=== PATIENT | male | born 1950 | race Caucasian/White ===

== ENCOUNTER 2023-01-14 09:59 | Outpatient (CLI) | payer MEDICARE, SELFPAY ==
--- NOTE | 2023-01-14 12:51 | WPDPFTINT ---
PFT Procedure Performed PFT Procedure Performed Plethysmography (Lung Vol) Diffusing Cap (DLCO) Flow Vol Loop Spirometry w/o Bronchodil PFT Interpretation This is a pulmonary function test with spirometry, plethysmography and diffusing capacity. The test was performed and results interpreted in accordance with the 2019 and 2005 ATS/ERS Task Force guidelines respectively using the Global Lung Function Initiative-2012 reference equations. Patient demonstrated good effort and cooperation. Reproducibility criteria were met. The quality of the spirometry maneuver was Grade A. Findings: Spirometry: The contour the inspiratory and expiratory flow tracing are normal. The FVC is 4.01 L, 102% predicted. The FEV1 is 3.07 L, 103% predicted. The FEV1: FVC ratio 77%. Plethysmography: The total lung capacity is 7.71 L, 116% predicted. The functional residual capacity is 4.46 L, 127% predicted. The residual volume is 3.61 L, 152% predicted. The residual volume:total lung capacity is increased at 47% predicted. Diffusing capacity: The diffusing capacity unadjusted for hemoglobin and carboxyhemoglobin is 24.0, 96% predicted. The diffusing capacity adjusted for alveolar volume is 4.25, 106% predicted. Impression: The spirometry is normal without evidence of an obstructive abnormality. The total lung capacity and functional residual capacity are normal with an increased residual volume and increased residual volume: Total lung capacity ratio consistent with hyperinflation. The diffusing capacity is normal. There are no prior studies for comparison
== END 2023-01-14 10:00 | disposition home or self-care (01) ==
LOC: ANHPFT 10:00
PROVIDERS: Visit Provider Internal Medicine Cardiovascular Disease
DX: R06.09 Other forms of dyspnea (principal)
CPT/HCPCS: 94375; 94726; 94729

== ENCOUNTER 2023-05-22 10:36 | Outpatient (CLI) | payer MEDICARE, SELFPAY ==
--- NOTE | ~2023-05-22 | CT_ITS ---
CT Scan of the Chest without Contrast: Clinical Indication: 5 mm lung nodule Technique: Contiguous sections were acquired throughout the chest without intravenous contrast. Dose reduction technique was used on this scan by utilizing automated exposure control and iterative recon struction technique. The dose-length product (DLP) was 144.64 mGy-cm. Findings: There is no evidence of any significant mediastinal, hilar or axillary lymphadenopathy. The mediastin al soft tissues appear normal. There is no evidence of pleural or pericardial effusion. 5 mm left lower lobe pulmonary nodule present (axial image 102). No other pulmonary nodule evident. Images through the upper abdomen reveal no abnormalities. Impression: 5 mm left lower lobe pulmonary nodule. According to Fleischner Society criteria, for a low-risk patie nt, no further follow-up required. For a high-risk patient, consider 12 month follow-up CT. Reviewed, dictated and finalized at [facility]. Impression: 5 mm left lower lobe pulmonary nodule. According to Fleischner Society criteria , for a low-risk patient, no further follow-up required. For a high-risk patien t, consider 12 month follow-up CT.
== END 2023-05-22 10:37 ==
LOC: GOSHIMG 10:38
PROVIDERS: PCP Nurse Practitioner Family; Visit Provider Nurse Practitioner Family
DX: R91.1 Solitary pulmonary nodule (principal)
CPT/HCPCS: 71250

== ENCOUNTER 2024-04-08 01:48 | Day surgery (SDC) | payer OTHER, SELFPAY ==
[2024-03-26 14:46] VITALS: BMI 27.1
--- OUTSIDE RECORDS SUMMARY | 2024-04-08 01:51 | XMS_ITS | CONTINUITY OF CARE DOCUMENT ---
Author Name carter machado Address Unknown Organization [facility] Address [address] [place] [address] [address] [place] [address] Phone [phone] Care Team Providers Care Registration Manager Name Role Phone carter machado Unavailable Unavailable INSURANCE PROVIDERS Payer name Policy type / Coverage type Anamika red democrat ID [id number] insurance [employer] [id number]
--- OUTSIDE RECORDS SUMMARY | 2024-04-08 01:51 | XMS_ITS | Clinical Summary ---
Author Organization [facility] Address [address] [facility] [place] [address] Care Team Providers Care Usability Architect Name Role Phone Ronaldo David MD Unavailable [phone] Ej Grant MD Primary Care Provider [phone] Source Comments [facility] and Associated Physician Practices is amultiple site organization consisting of ambulatory clinics and hospital sitesin [place], [place], [place] and [place]. This disclosure is being madepursuant to the Care Everywhere program and may not contain all information available regarding this patient. Last updated 17.[facility] Allergies Active Allergy Reactions Criticality Noted Date Comments Morphine Nausea and/or Vomiting 03/30/2012 Tramadol Nausea and/or Vomiting 08/02/2009 Medications * Be aware that medications may not be up to date on this document. Alwaysverify current medications with the patient. Medication Sig Dispensed Refills Start Date End Date Status lisinopril (PRINIVIL; ZESTRIL) 10 MG tablet Take 10 mg by mouth daily. Active hydrocodone-acetamino phen (NORCO) 5-325 MG tablet Take 1-2 Tabs by mouth every 6 hours as needed. Called to [facility] [phone] 50 Tab 1 07/30/2013 Active celecoxib (CELEBREX) 200 MG capsule Take 1 Cap by mouth once daily. Sent to 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 Right leg pain 08/02/2009 Low back pain 08/02/2009 Overview (01/15/2015): Family History Relation Name Status Comments Father Mother Alive Sister 1 Alive Sister 2 Alive Sister 3 Alive Sister 4 Alive Social History Tobacco Use Types Packs/Day Years Used Date Smoking Tobacco: Former Cigarettes 0.5 10 0 07/19/1974 - 07/19/1984 Smokeless Tobacco: Never Alcohol Use Standard Drinks/Week Comments Yes 0.8 (1 standard drin k = 0.6 oz pure alcohol) Beer - 5 per week for 10 years Sex and Gender Information Value Date Recorded Sex Assigned at Not on file Gender Identity Not on file Sexual Orientation Not on file Last Filed Vital Signs Vital Sign Reading Time Taken Comments Blood Pressure 122/82 07/30/2013 8:54 AM CDT Pulse 96 07/30/2013 8:54 AM CDT Temperature 36.7 ??C (98 ??F) 07/30/2013 6:34 AM CDT Respiratory Rate 14 07/30/2013 8:54 AM CDT Oxygen Saturation 96% 07/30/2013 8:54 AM CDT Inhaled Oxygen Concentration - - Weight 87.3 kg (192 lb 6.4 oz) 07/28/2013 11:08 AM CDT Height 172.7 cm (5' 8 ) 07/28/2013 11:08 AM CDT Body Mass Index 29.25 07/28/2013 11:08 AM CDT Plan of Treatment Health Maintenance Due Date Last Done Comments COLOGUARD (AGES 45-75) - COL ON CA SCREENING 1950 COLON MONITORING 1950 COLONOSCOPY - COLON CA SCREENING 1951 CT COLONOGRAPHY - COLON CA SCREENING 1950 Colorectal Cancer Screening 1950 FIT - COLON CA SCREENING 1950 FLEX SIG - COLON CA SCREENING 1950 LIPID TESTING 1950 HEPATITIS C SCREENING 10/18/1969 DTAP/TDAP/TD VACCINES (1 - Tdap) 10/22/1970 PNEUMOCOCCAL VACCINE 50+ (1 of 1 - PCV) 10/22/2001 ZOSTER VACCINE (1 of 2) 10/22/2001 AAA SCREENING 10/22/2016 COVID-19 VACCINE ( - 2023-2 5 season) 2023 INFLUENZA VACCINE (#1) 2023 DEPRESSION SCREENING 03/10/2024 Respiratory Syncytial Virus (RSV) Vaccine Pt: or over 60 yrs (1 - 1-dose 75+ series) 10/22/2026 HEPATITIS B VACCINE Aged Out No longe r eligible based on patient's age to complete this topic HIB VACCINE Aged Out No longer eligi ble based on patient's age to complete this topic HPV VACCINE Aged Out No longer eligi ble based on patient's age to complete this topic MENINGOCOCCAL (Group B) VACCINE Aged Out No longer eligible based on patient's age to complete this topic MENINGOCOCCAL VACCINE Aged Out No tess charo eligible based on patient's age to complete this topic Medical Devices Implanted Type Area Modeling Teacher Device Identifier Shelf Expiration Date Model / Serial / Lot Tereso Bone [place] Hv Implanted:Qty: 1 on 07/28/2013 by Ronaldo David MD at [facility] [employer] 03/09/2015 [id number] / / [id number] Tereso Bone [place] Hv Implanted:Qty: 1 on 07/28/2013 by Ronaldo David MD at [facility] Left: [employer]nee [employer] 03/09/2015 [id number] / / [id number] Butn Pat Arcom Wire Polyeth Med 34 X 9mm Implanted:Qty: 1 on 07/28/2013 by Ronaldo David MD at [facility] Left: [employer]nee [employer] 06/06/2018 [id number] / / [id number] Ty Tibial I Beam Fix Bar 75mm Implanted:Qty: 1 on 07/28/2013 by Ronaldo David MD at [facility] Left: [employer]nee [employer] 06/07/2023 [id number] / / [id number] Femur Ps L 70mm Implanted:Qty: 1 on 07/28/2013 by Ronadlo David MD at [facility] Left: [employer]nee [employer] 03/09/2023 [id number] / / [id number] E1 Vanguard Tibial Bearing Implanted:Qty: 1 on 07/28/2013 by Ronaldo David MD at [facility] Left: Knee 05/07/2018 [id number] / / [id number] Advance Directives * Full Code (Latest Code Status on File) Date Activated Date Inactivated Comments 07/28/2013 5:54 PM 07/30/2013 1:05 PM Care Teams Usability Architect Relationship Specialty Start Date End Date Ej Grant MD [address] [facility] [address] [place] [phone] PCP - General Internal Medicine 07/01/13 Ronaldo David MD Orthopedic Surgery 07/01/13
--- OUTSIDE RECORDS SUMMARY | 2024-04-08 01:51 | XMS_ITS | Encounter Summary ---
Author Organization [facility] Address [address] [facility] [place] [address] Care Team Providers Care Auditor Internal Name Role Phone Ronaldo David MD Unavailable [phone] Ej Grant MD Primary Care Provider [phone] Encounter Details Date Type Department Care Team (Late st Contact Info) Description 06/11/2023 Lab Requisition [facility] - DermPath Lab [address] [facility], [place] [address] Mariah Omer MD [address] [facility] 3 DE[place] [address] Social History Tobacco Use Types Packs/Day Years [...] on file Sexual Orientation Not on file documented as of this encounter Functional Status Functional Status Response Date of Assess ment Is person deaf or have serious hearing difficult y? No 07/30/2013 Is person blind or have serious difficulty seein g? No 07/30/2013 Does person have serious dif ficulty walking/climbing stairs? No 07/30/2013 Does person have difficulty dressing/bathing? No 07/30/2013 Does person have difficulty doing errands alone? No 07/30/2013 Cognitive Status Response Date of Assessm ent Does person have difficulty concentrating/remembering/making decisions? No 07/30/2013 documented as of this encounter Plan of Treatment Not on file documented as of this encounter Procedures Procedure Name Priority Date/Time Associated Diagnosis Comments DERMATOPATHOLOGY Routine 06/11/2023 9:36 AM CDT documented in this encounter Results * DERMATOPATHOLOGY (06/11/2023 9:36 AM CDT) Case Report Dermatopathology Report ? Case: [id number] ? Authorizing Provider: ??Mariah Omer MD ?Collected: ? 06/11/2023 09:36 AM ? Ordering Location: ? [facility] - ??Received: ?06/12/2023 06:46 AM ? DermPath Lab ? Pathologist: ? Shruthi Ramos MD ? Specimens: ?? A) - Skin, forehead ? B) - Skin, left back ? 3:31 PM [facility] DERMATOPATHOLOGY LABORATORY Final Diagnosis Specimen A. 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 SKIN, left back: BASAL CELL CARCINOMA, NODULAR TYPE (C44.519) 3:31 PM [facility] DERMATOPATHOLOGY LABORATORY Clinical History A: SCC vs. ISK B: Pigmented BCC vs. MM 3:31 PM [facility] DERMATOPATHOLOGY LABORATORY Gross Description Specimen A: Received is one formalin filled container labeled with the patient's name and designated forehead. The specimen consists of a shave biopsy measuring 5x5x2 mm. Jar 0. Specimen B: Received is one formalin filled container labeled with the patient's name and designated left back. The specimen consists of a shave biopsy measuring 15v63u6 mm. Jar 0. 3:31 PM [facility] DERMATOPATHOLOGY LABORATORY Microscopic Description Specimen A. SKIN, forehead: Sections show areas in which atypical keratinocytes are present within the epidermis in two different patterns. In one area, atypical keratinocytes replace most of the thickness of the epidermis and there are broad rete ridges and overlying parakeratosis. In other areas, there are atypical keratinocytes in the lower epidermis with partial maturation. There is solar elastosis. Specimen B. SKIN, left back: Sections show nodular aggregations of peripherally palisaded basaloid cells in the dermis. Melanin is present in neoplastic cells, and in macrophages in the adjacent fibromyxoid stroma. 3:31 PM [facility] DERMATOPATHOLOGY LABORATORY Disclaimer An external and internal positive and negative controls are appropriate for the histochemical, immunohistochemical and immunofluorescence stain(s) in this case (if any), except where stated explicitly. The performance characteristics of the stain(s) cited in this report were developed and its performance characteristic determined by the Dermatopathology Laboratory at [facility], directed by Dr. Rusty Cornejo. These tests need not be, and therefore are not, approved by the [place] Food and Drug Administration. The tests are used for clinical purposes. Billing Codes Specimen Charges Stain Charges 71460 82691 1 1 4 3:31 PM CDT DERMATOPATHOLOGY LABORATORY Embedded Images 4 3:31 PM CDT DERMATOPATHOLOGY LABORATORY Pathology/Cytology TISSUE SPECIMEN FROM SKIN / Unknown 06/11/2023 9:36 AM CDT 06/12/2023 6:46 AM CDT Miscellaneous samples (specimen) TISSUE SPECIMEN FROM SKIN / Unknown 06/11/2023 9:36 AM CDT 06/12/2023 6:46 AM CDT Mariah Omer MD LAB - PATHOLOGY/CYTO LOGY ORDERABLES Performing Organization Address City/State/[facility] Co de Phone Number DERMATOPATHOLOGY LABORATORY [facility] - Department of Dermatology [facility] Medicine [address] [place] [address], [address] [phone] documented in this encounter Visit Diagnoses Not on filedocumented in this encounter Care Teams Auditor Internal Relationship Specialty Start Date End Date Ej Grant MD [address] [place] [address] [address] [place] [phone] PCP - General Internal Medicine 07/01/13 Ronaldo David MD Orthopedic Surgery 07/01/13 documented as of this encounter
--- OUTSIDE RECORDS SUMMARY | 2024-04-08 01:51 | XMS_ITS | Referral Summary ---
Author Organization [facility] Address [address] [facility] [place] [address] Care Team Providers Care Manager Policy Name Role Phone Ronaldo David MD Unavailable [phone] Ej Grant MD Primary Care Provider [phone] Source Comments [facility] and Associated Physician Practices is amultiple site organization consisting of ambulatory clinics and hospital sitesin [place], [place], [place] and [place]. This disclosure is being madepursuant to the Care Everywhere program and may not contain all information available regarding this patient. Last updated 17.[facility] Allergies Active Allergy Reactions Criticality Noted Date [...] every 6 hours as needed. Called to [facility] [phone] 50 Tab 1 07/30/2013 Active celecoxib (CELEBREX) 200 MG capsule Take 1 Cap by mouth once daily. Sent to 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 No 07/30/2013 Plan of Treatment Not on file Medical Devices Implanted Type Area Clerk Of Court Device Identifier Shelf Expiration Date Model / Serial / Lot Tereso Bone [place] Hv Implanted:Qty: 1 on 07/28/2013 by Ronaldo David MD at [facility] [employer] 03/09/2015 [id number] / / [id number] Tereso Bone [place] Hv Implanted:Qty: 1 on 07/28/2013 by Ronaldo David MD at [facility] Left: [employer] 03/09/2015 [id number] / / [id number] Gladys Oneill Ar[employer] Polyeth Med 34 X 9mm Implanted:Qty: 1 on 07/28/2013 by Ronaldo David MD at [facility] Left: [employer] 06/06/2018 [id number] / / [id number] Tibial I Beam Fix Bar 75mm Implanted:Qty: 1 on 07/28/2013 by Ronaldo David MD at [facility] Left: [employer] 06/07/2023 [id number] / / [id number] Femur Ps L 70mm Implanted:Qty: 1 on 07/28/2013 by Ronaldo David MD at [facility] Left: [employer] 03/09/2023 [id number] / / [id number] E1 Vanguard Tibial Bearing Implanted:Qty: 1 on 07/28/2013 by Ronaldo David MD at [facility] Left: Knee 05/07/2018 [id number] / / [id number] Advance Directives * Full Code (Latest Code Status on File) Date Activated Date Inactivated Comments 07/28/2013 5:54 PM 07/30/2013 1:05 PM Care Teams Manager Policy Relationship Specialty Start Date End Date Ej Grant MD [address] [facility] [address] [place] [address] PCP - General Internal Medicine 07/01/13 Ronaldo David MD Orthopedic Surgery 07/01/13
--- OUTSIDE RECORDS SUMMARY | 2024-04-08 01:51 | XMS_ITS | Encounter Summary ---
Author Organization [facility] Address [address] [facility] [place] [address] Care Team Providers Care Lockstitch Hemmer Name Role Phone Ronaldo David MD Unavailable [phone] Ej Grant MD Primary Care Provider [phone] Encounter Details Date Type Department Care Team (Late st Contact Info) Description 09/01/2023 Lab Requisition [facility] - [facility]erm[facility] Lab [address] [facility], [place] [address] Mariah Omer MD [address] [facility] [address] [place] [address] Social History Tobacco Use Types Packs/Day Years [...] Priority Date/Time Associated Diagnosis Comments DERMATOPATHOLOGY Routine 09/01/2023 10:5 0 AM CDT documented in this encounter Results * DERMATOPATHOLOGY (09/01/2023 10:50 AM CDT) Case Report Dermatopathology Report ? Case: [id number] ? Authorizing Provider: ??Mariah Omer MD ?Collected: ? 09/01/2023 10:50 AM ? Ordering Location: ? [facility] - ??Received: ?09/01/2023 04:19 PM ? DermPath Lab ? Pathologist: ? Yesica Do, ? MD ? Specimen: ?Skin, left back ? 4 1:29 PM T DERMATOPATHOLOGY LABORATORY Final Diagnosis Specimen A. SKIN, left back: DERMAL SCAR RESIDUAL BASAL CELL CARCINOMA NOT IDENTIFIED (L90.5) 4 1:29 PM T DERMATOPATHOLOGY LABORATORY Clinical History BCC bx proven 4 1:29 PM [facility] DERMATOPATHOLOGY LABORATORY Gross Description Specimen A: Received is one formalin filled container labeled with the patient's name and designated left back. The specimen consists of a non-oriented ellipse of skin measuring 72e46q50 mm. The epidermal surface is unremarkable. The margin is inked green. The 12 o'clock and 6 o'clock tips are submitted in cassette 1. The remainder of the ellipse is serially sectioned and submitted in cassette 2-8. Jar 0. 4 1:29 PM [facility] DERMATOPATHOLOGY LABORATORY Microscopic Description Specimen A. SKIN, left back: There are fibroblasts and collagen bundles oriented parallel to the skin surface. There are elongated blood vessels, some of which are oriented perpendicular to the skin surface. No basal cell carcinoma is identified. 4 1:29 PM T DERMATOPATHOLOGY LABORATORY Disclaimer An external and internal positive and negative controls are appropriate for the histochemical, immunohistochemical and immunofluorescence stain(s) in this case (if any), except where stated explicitly. The performance characteristics of the stain(s) cited in this report were developed and its performance characteristic determined by the Dermatopathology Laboratory at [facility], directed by Dr. Rusty Cornejo. These tests need not be, and therefore are not, approved by the [place] Food and Drug Administration. The tests are used for clinical purposes. Billing Codes Specimen Charges Stain Charges 12645 1 4 1:29 PM T DERMATOPATHOLOGY LABORATORY Embedded Images 06/26/202 4 1:29 PM CDT DERMATOPATHOLOGY LABORATORY Pathology/Cytolo gy TISSUE SPECIMEN FROM SKIN / Unknown 09/01/2023 10:50 AM CDT 09/01/2023 4:19 PM CDT Mariah Omer MD LAB - PATHOLOGY/CYTO LOGY ORDERABLES DERMATOPATHOLOGY LABORATORY [facility] - Department of Dermatology [facility] Medicine [address] [place] [address], [address] [phone] documented in this encounter Visit Diagnoses Not on filedocumented in this encounter Care Teams Lockstitch Hemmer Relationship Specialty Start Date End Date Ej Grant MD [address] [place] [phone] PCP - General Internal Medicine 07/01/13 Ronaldo David MD Orthopedic Surgery 07/01/13 documented as of this encounter
--- OUTSIDE RECORDS SUMMARY | 2024-04-08 01:51 | XMS_ITS | Patient Health Summary ---
Author Organization [facility] Address [address] [place] [address] Care Team Providers Care Carpet Cleaning Technician Name Role Phone Ronaldo David MD Unavailable [phone] Ej Grant MD Primary Care Provider [phone] Note from [facility],non-owned Affiliates and Associated Physician Practices is amultiple site organization consisting of ambulatory clinics and hospital sitesin [place], [place], [place] and [place]. This disclosure is being madepursuant to the Care Everywhere program and may not contain all information available regarding this patient. Last updated 17.[facility] Allergies * Morphine(Nausea and/or Vomiting) * Tramadol(Nausea and/or Vomiting) Medications * Be aware that medications may not be up to date on this document. Alwaysverify current medications with the patient. * lisinopril (PRINIVIL; ZESTRIL) 10 MG tablet Take 10 mg by mouth daily. * hydrocodone-acetaminophen (NORCO) 5-325 MG tablet(Started 07/30/2013) Take 1-2 Tabs by mouth every 6 hours as needed. Called to [facility] [phone] 1 refill left * celecoxib (CELEBREX) 200 MG capsule(Started 07/30/2013) Take 1 Cap by mouth once daily. 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 Right leg pain 08/02/2009 Low back pain 08/02/2009 Social History Tobacco Use Types Packs/Day Years [...] Mass Index 29.25 07/28/2013 11:08 AM CDT Medical Devices Implanted Type Area Marine Technician Device Identifier Shelf Expiration Date Model / Serial / Lot Tereso Bone [place] Implanted:Qty: 1 on 07/28/2013 by Ronaldo David MD at [facility] [employer] 03/09/2015 [id number] / / [id number] Tereso Bone [place] Hv Implanted:Qty: 1 on 07/28/2013 by Ronaldo David MD at [facility] Left: [employer]nee [employer] 03/09/2015 [id number] / / [id number] Gladys Plataom Wire Polyeth Med 34 X 9mm Implanted:Qty: 1 on 07/28/2013 by Ronaldo David MD at [facility] Left: [employer]nee [employer] 06/06/2018 [id number] / / [id number] Tibial I Beam Fix Bar 75mm Implanted:Qty: 1 on 07/28/2013 by Ronaldo David MD at [facility] Left: [employer]nee [employer] 06/07/2023 [id number] / / [id number] Femur Ps L 70mm Implanted:Qty: 1 on 07/28/2013 by Ronaldo David MD at [facility] Left: [employer]nee [employer] 03/09/2023 [id number] / / [id number] Vanguard Tibial Bearing Implanted:Qty: 1 on 07/28/2013 by Ronaldo David MD at [facility] Left: Knee 05/07/2018 [id number] / / [id number] Procedures * DERMATOPATHOLOGY(Performed 09/01/2023) * DERMATOPATHOLOGY(Performed 06/11/2023) * XR KNEE LEFT 2VW OR LESS(Performed 08/11/2013) Performed for Total knee replacement status * HGB HCT PANEL(Performed 07/30/2013) * HGB HCT PANEL(Performed 07/29/2013) * ARTHROPLASTY TOTAL KNEE(Performed 07/28/2013) Performed for Osteoarthrosis, unspecified whether generalized or localized, lower leg, Pain in joint, lower leg * NEURAXIAL BLOCK(Performed 07/28/2013) * CULTURE MSSA/MRSA(Performed 07/19/2013) Performed for Pre-op testing * COMPREHENSIVE METABOLIC PANEL(Performed 07/19/2013) Performed for Pre-op testing * CBC W AUTO DIFFERENTIAL(Performed 07/19/2013) Performed for Pre-op testing * EKG 12-LEAD(Performed 07/19/2013) Performed for Pre-op testing * XR KNEE BILAT 2VW OR LESS(Performed 07/01/2013) Performed for Bilateral knee pain * IMAGING/RADIOLOGY/XRAY RESULTS ORDER(Performed 08/28/2012) * PAIN MANAGEMENT PROCEDURE TIME(Performed 04/06/2012) Performed for Thoracic or lumbosacral neuritis or radiculitis, unspecified, Postlaminectomy syndrome, lumbar region, Lumbosacral spondylosis without myelopathy * PAIN MANAGEMENT PROCEDURE TIME(Performed 03/30/2012) Performed for Thoracic or lumbosacral neuritis or radiculitis, unspecified, Postlaminectomy syndrome, lumbar region, Lumbosacral spondylosis without myelopathy * IMAGING/RADIOLOGY/XRAY RESULTS ORDER(Performed 07/20/2009) Results * DERMATOPATHOLOGY (09/01/2023 10:50 AM CDT) Only the most recent of2 resultswithin the time period is included. Case Report Dermatopathology Report ? Case: [id number] ? Authorizing Provider: ??Mariah Omer, MD ?Collected: ? 09/01/2023 10:50 AM ? Ordering Location: ? [facility] - ??Received: ?09/01/2023 04:19 PM ? DermPath Lab ? Pathologist: ? Hi, Yesica Cook, ? MD ? Specimen: ?Skin, left back ? 4 1:29 PM CDT DERMATOPATHOLOGY LABORATORY Final Diagnosis Specimen A. SKIN, left back: DERMAL SCAR RESIDUAL BASAL CELL CARCINOMA NOT IDENTIFIED (L90.5) 4 1:29 PM CDT DERMATOPATHOLOGY LABORATORY Clinical History BCC bx proven 4 1:29 PM CDT DERMATOPATHOLOGY LABORATORY Gross Description Specimen A: Received is one formalin filled container labeled with the patient's name and designated left back. The specimen consists of a non-oriented ellipse of skin measuring [id number] mm. The epidermal surface is unremarkable. The margin is inked green. The 12 o'clock and 6 o'clock tips are submitted in cassette 1. The remainder of the ellipse is serially sectioned and submitted in cassette 2-8. Jar 0. 4 1:29 PM CDT DERMATOPATHOLOGY LABORATORY Microscopic Description Specimen A. SKIN, left back: There are fibroblasts and collagen bundles oriented parallel to the skin surface. There are elongated blood vessels, some of which are oriented perpendicular to the skin surface. No basal cell carcinoma is identified. 4 1:29 PM CDT DERMATOPATHOLOGY LABORATORY Disclaimer An external and internal positive and negative controls are appropriate for the histochemical, immunohistochemical and immunofluorescence stain(s) in this case (if any), except where stated explicitly. The performance characteristics of the stain(s) cited in this report were developed and its performance characteristic determined by the Dermatopathology Laboratory at [facility], directed by Dr. Rusty Cornejo. These tests need not be, and therefore are not, approved by the [place] Food and Drug Administration. The tests are used for clinical purposes. Billing Codes Specimen Charges Stain Charges 09450 1 4 1:29 PM CDT DERMATOPATHOLOGY LABORATORY Embedded Images 4 1:29 PM CDT DERMATOPATHOLOGY LABORATORY Pathology/Cytolo gy TISSUE SPECIMEN FROM SKIN / Unknown 09/01/2023 10:50 AM CDT 09/01/2023 4:19 PM CDT Mariah Omer MD LAB - PATHOLOGY/CYTO LOGY ORDERABLES Performing Organization Address City/State/[facility] Co de Phone Number DERMATOPATHOLOGY LABORATORY [facility] Department of Dermatology [address], [address] [phone] * XR KNEE 1 OR 2 VW LEFT (08/11/2013 9:39 AM CDT) Anatomical Region Laterality Modality Lower Extremity Radiographic Mariangel ging Narrative 08/11/2013 9:42 AM CDT Radha Sorenson RT(R) ? 08/11/2013 ??9:42 AM See progress notes for results Procedure Note Radha Sorenson, RT(R) - 08/11/2013 9:41 AM CDT See progress notes for results Ronaldo David MD DIAGNOSTIC IMAGING ORDERABLES * HGB HCT PANEL (07/30/2013 3:26 AM CDT) Only the most recent of2 resultswithin the time period is included. Hemoglobin 12.0 12.0 - 17.6 gm/dL 07/30/2013 3:52 AM CDT [facility] Hematocrit 35.6 35.2 - 51.7 % 07/30/2013 3:52 AM CDT [facility] Blood BLOOD SPECIMEN / Unknown 07/30/2013 3:26 AM CDT 07/30/2013 3:48 AM CDT Ronaldo David MD LAB - HEMATOLOGY OR DERABLES [facility] [address] [place] [address] * NEURAXIAL BLOCK (07/28/2013 2:16 PM CDT) Narrative Christine Agrawal, ELTON-MITTEN SEWER - 07/28/2013 2:16 PM CDT SHEEBA [place] ? 07/28/2013 ??2:16 PM NEURAXIAL BLOCK Patient Location: ??OR Pre Procedure Anticoagulation /Antithrombosis Status Confirmed: Yes Preanesthetic Checklist: ??patient identified, IV checked, site marked, risks and benefits discussed, surgical consent verified, monitors and equipment checked, pre-op evaluation done, timeout performed, informed consent obtained and questions answered / anesthesia plan accepted Monitors: ??BP and Pulse Ox Patient Condition: ??sedated, meaningful contact maintained Patient Position: ??sitting Procedure Block Performed: ??spinal Prep: ??Betadine Sterile Field: ??sterile gloves, sterile field established, cap/hat and mask Approach: ??midline Skin Numbed with: ??lidocaine 1% Spinal Needle Gauge: ??22 G Placement Site: ??L3-4 Number of Attempts: ??2 CSF: ??free flow, aspiration before injection, aspiration during injection and aspiration after injection Local Anesthetic: ??bupivacaine 0.75% in dextrose 2 Spinal Additive: ?fentanyl 25 mcg ? Events CSF return injection not painful no paresthesia no other event Position Post Procedure: ??supine Vital signs monitored and stable throughout. ??See Anesthesia Intraop record for details. Block Start Time: ??07/28/2013 1:22 PM Block End Time: ??07/28/2013 1:25 PM Block Performed by: ??sam jin Procedure Note Christine Agrawal, HEALTH INFORMATION ADMINISTRATOR-SAM - 07/28/2013 2:14 PM CDT NEURAXIAL BLOCK Patient Location: OR Pre Procedure Anticoagulation /Antithrombosis Status Confirmed: Yes Preanesthetic Checklist: patient identified, IV checked, site marked,risks and benefits discussed, surgical consent verified, monitors andequipment checked, pre-op evaluation done, timeout performed, informedconsent obtained and questions answered / anesthesia plan accepted Monitors: BP and Pulse Ox Patient Condition: sedated, meaningful contact maintained Patient Position: sitting Procedure Block Performed: spinal Prep: Betadine Sterile Field: sterile gloves, sterile field established, cap/hat andmask Approach: midline Skin Numbed with: lidocaine 1% Spinal Needle Gauge: 22 G Placement Site: L3-4 Number of Attempts: 2 CSF: free flow, aspiration before injection, aspiration during injectionand aspiration after injection Local Anesthetic: bupivacaine 0.75% in dextrose 2 Spinal Additive: fentanyl 25 mcg Events CSF return injection not painful no paresthesia no other event Position Post Procedure: supine Vital signs monitored and stable throughout. See Anesthesia Intraoprecord for details. Block Start Time: 07/28/2013 1:22 PM Block End Time: 07/28/2013 1:25 PM Block Performed by: davin, bearingizer Christine Agrawal APRN-MITTEN SEWER GENERAL EMILIA ARELLANO ORDERABLES * (ABNORMAL) CULTURE MSSA/MRSA (07/19/2013 8:42 AM CDT) Pathologist [facility] [place] Culture Negative for MRSA 014 2:53 PM CDT [facility]CRO[facility]OLOG[facility] Culture Staphylococcus aureus (MSSA)(A) 07/20/2013 2:53 PM CDT [facility] MICRO[facility]OLOG[facility] Microbiology SPECIMEN FROM NASAL FOSSAE / Unknown 07/19/2013 8:42 AM CDT 07/19/2013 9:35 AM CDT Miko Linda MD LAB - MICROBIOLOGY O RDERABLES [facility] MICROBIOLOGY [address] [place] [address], [facility] * (ABNORMAL) CBC W AUTO DIFFERENTIAL (07/19/2013 8:42 AM CDT) Pathologist [facility] [place] WBC 7.4 4.4 - 10.7 x10^9/L 07/19/2013 9:42 AM CDT [facility] RBC 4.58 3.80 - 5.40 x10^12/L 07/19/2013 9:42 AM CDT [facility] Hemoglobin 15.1 12.0 - 17.6 gm/dL 07/19/2013 9:42 AM CDT [facility] Hematocrit 43.7 35.2 - 51.7 % 07/19/2013 9:42 AM CDT [facility] MCV 95.4 80.7 - 98.3 fl 07/19/2013 9:42 AM CDT [facility] MCH 33.0 26.7 - 34.0 pg 07/19/2013 9:42 AM CDT [facility] MCHC 34.6 30.8 - 35.9 gm/dL 07/19/2013 9:42 AM CDT [facility] Platelet Count 241 153 - 416 x10^9/L 07/19/2013 9:42 AM CDT [facility] RDW-CV 13.9 12.1 - 14.9 % 07/19/2013 9:42 AM CDT [facility] MPV 9.8 9.4 - 12.9 fl 07/19/2013 9:42 AM CDT [facility] Neutrophils % 75.2(H) 44.0 - 73.0 % 07/19/2013 9:42 AM CDT [facility] Lymphocytes % 16.4(L) 20.0 - 43.0 % 07/19/2013 9:42 AM CDT [facility] Monocytes % 7.7 5.0 - 13.0 % 07/19/2013 9:42 AM CDT [facility] Eosinophils % 0.3 0.0 - 6.0 % 07/19/2013 9:42 AM CDT [facility] Basophils % 0.3 0.0 - 2.0 % 07/19/2013 9:42 AM CDT [facility] Immature Granulocytes 0.1 0 - 1 % 07/19/2013 9:42 AM CDT [facility] Neutrophil Absolute 5.57 2.01 - 7.14 x10^9/L 07/19/2013 9:42 AM CDT [facility] Lymphocytes Absolute 1.21 1.07 - 3.94 x10^9/L 07/19/2013 9:42 AM CDT [facility] Monocytes Absolute 0.57 0.26 - 1.07 x10^9/L 07/19/2013 9:42 AM CDT [facility] Eosinophils Absolute 0.02 0 - 0.47 x10^9/L 07/19/2013 9:42 AM CDT [facility] Basophils Absolute 0.02 0 - 0.08 x10^9/L 07/19/2013 9:42 AM CDT [facility] Immature Granulocytes Absolute 0.01 0.00 - 0.06 x10^9/L 07/19/2013 9:42 AM CDT [facility] Blood BLOOD SPECIMEN / Unknown 07/19/2013 8:42 AM CDT 07/19/2013 9:35 AM CDT Miko Linda MD LAB - HEMATOLOGY ORD ERABLES [facility] [address] [place] [address] * (ABNORMAL) COMPREHENSIVE METABOLIC PANEL (07/19/2013 8:42 AM CDT) Glucose 142(H) 74 - 106 mg/dL 07/19/2013 9:57 AM CDT [facility] Sodium 135(L) 136 - 145 mmol/L 07/19/2013 9:57 AM CDT [facility] Potassium 4.4 3.5 - 5.1 mmol/L 07/19/2013 9:57 AM CDT [facility] Chloride 102 98 - 107 mmol/L 07/19/2013 9:57 AM CDT [facility] CO2 27 22 - 31 mmol/L 07/19/2013 9:57 AM CDT [facility] Calcium 9.2 8.5 - 10.1 mg/dL 07/19/2013 9:57 AM CDT [facility] Anion Gap 6 5 - 15 mmol/L 07/19/2013 9:57 AM CDT [facility] BUN 20 7 - 21 mg/dL 07/19/2013 9:57 AM CDT [facility] Creatinine 0.83 0.50 - 1.30 mg/dL 07/19/2013 9:57 AM CDT [facility] eGFR by MDRD >60 >60 mL/min/1.7 3m2 07/19/2013 9:57 AM CDT [facility] eGFR by MDRD >60 >60 mL/min/1.7 3m2 07/19/2013 9:57 AM CDT [facility] Alkaline Phosphatase 41 38 - 126 U/L 07/19/2013 9:57 AM CDT [facility] ALT 28 12 - 78 U/L 07/19/2013 9:57 AM CDT [facility] AST 23 5 - 40 U/L 07/19/2013 9:57 AM CDT [facility] Protein Total 7.4 6.4 - 8.2 gm/dL 07/19/2013 9:57 AM CDT [facility] Albumin 4.1 3.4 - 5.0 gm/dL 07/19/2013 9:57 AM CDT [facility] Bilirubin Total 0.4 0.2 - 1.0 mg/dL 07/19/2013 9:57 AM CDT [facility] Blood BLOOD SPECIMEN / Unknown 07/19/2013 8:42 AM CDT 07/19/2013 9:35 AM CDT Miko Linda MD LAB - CHEMISTRY [place] PAVON Performing Organization Address [facility] de Phone Number [facility] [address] [place] [address] * EKG 12-LEAD (07/19/2013 7:29 AM CDT) Ventricular Rate 80 BPM [facility] Atrial Rate 80 BPM [facility] P-R Interval 178 ms [facility] QRS Duration ms 90 ms [facility] Q-T Interval ms 382 ms [facility] QTC Calculation (Bezet) 440 ms [facility] Calculated P [place] 56 degrees [facility] Calculated R [place] -10 degrees [facility] Calculated T [place] 35 degrees [facility] Interpretation EKG Normal sinus rhythm Normal ECG No previous ECGs available Confirmed by RAYMUNDO RENTERIA MYNOR ([id number]) on 07/20/2013 9:17:12 AM [facility] 07/19/2013 7:29 AM CDT 07/20/2013 9:17 AM CDT Narrative [facility] - 07/20/2013 8:17 AM CDT Procedure Note Document, Scanned - 07/19/2013 12:31 PM CDT Transcriptions Document, Scanned - 07/19/2013 12:31 PM CDT Document, Scanned - 07/20/2013 9:18 AM CDT Miko Linda MD ECG ORDERABLES Performing Organization Address [facility] de Phone Number [facility] * XR KNEE BILAT ONE OR TWO VIEWS (07/01/2013 1:40 PM CDT) Anatomical Region Laterality Modality Lower Extremity Radiographic Mariangel ging Narrative 07/01/2013 4:00 PM CDT Leona Zuniga ? 07/01/2013 ??4:00 PM Please see progress notes for result. Procedure Note Leona Zuniga - 07/01/2013 4:00 PM CDT Please see progress notes for result. Ronaldo David MD DIAGNOSTIC IMAGING ORDERABLES * IMAGING/RADIOLOGY/XRAY RESULTS ORDER (08/28/2012) Only the most recent of2 resultswithin the time period is included. Anatomical Region Laterality Modality Other Morris Ferreira DC IMAGING * PAIN MANAGEMENT PROCEDURE TIME (04/06/2012 10:58 AM AIR BRUSH OPERATOR) Only the most recent of2 resultswithin the time period is included. Anatomical Region Laterality Modality X-Ray Angiograph y Narrative 04/06/2012 11:08 AM AIR BRUSH OPERATOR Tulio Ramos MD ? 04/06/2012 11:08 AM ? Left L 5 & S1 Transforaminal Epidural Injection Mateo Caruso ? Provider: Tulio Ramos MD 1950 ? Date: 04/06/2012 ?? Ej Grant Allergies: ?? Allergies as of 04/06/2012 - reviewed 04/06/2012 Allergen Reaction Noted ? ? Morphine Nausea and/or Vomiting 03/30/2012 ? ? Tramadol Nausea and/or Vomiting 08/02/2009 Procedures: TFE ??Left ??L5 & S1 ? Indication for Procedure: Intractable radicular pain of the lower extremity. Procedure: ??Lumbar/Sacral Transforaminal Injection. Informed Consent: ??After the patient Mateo Caruso ??was informed of the risks and benefits of the procedure and all questions were answered, consent was signed. Risks benefits, and alternative were discussed including risk of infection, bleeding , nerve damage, worsening pain, no pain relief whatsoever, transient increase in blood pressure, blood sugar, fluid retention,possibility of headache, possibility of shingles, or any other viral outbreak secondary to immunosuppressant effects of steroid use. Prep: ??Pt identified, proper procedure identified, site identified, and marked by Dr. Ramos. ??Responsible river driver is not needed due to the patient not having sedation. The patient was placed in a prone position and was prepped with Chloraprep. Fluoroscopy: ??Procedure done under fluoroscopy; verifying needle placement with ??fluoroscopy . ??The transverse process/sacral foramen was identified and lidocaine 1% was injected. Local Injection: ??Lidocaine 1.0% into the skin and subcutaneous tissues using a 25 gauge needle. Needle Placement: A 22 gauge 3 1/2 spinal needle was then inserted through the anesthetized area until the tip stimulated the nerve root or was in the six o'clock position to the pedicle in AP and superior foramen in Lat fluoroscopic visualization. Nerve Root injected :Left L5 & S1. Total Lidocaine: !%; 6ml Depo Medrol: 80 mg ? The patient tolerated the procedure well and there were no complications. ??The patient was taken to the recovery area. ??The patient remained in stable condition with no apparent complications. ??Vital signs stable. ??Injection site clean, dry, and intact. ??Post procedure instructions were given to the patient and a follow up appointment was confirmed. ??The patient was discharged with information on how to reach the clinic at anytime for questions or concerns. ??Pt ambulatory, denies complaints, DC to home. ??Pt survey given. Procedure codes: Epi Transfor Lumbar/Sac (S), Epi Add Levels Lumb/Sac, Fluoro. Tulio Ramos MD Procedure Note Tulio Ramos MD - 04/06/2012 11:07 AM CST Left L 5 & S1 Transforaminal EpiduralInjection Mateo Caruso Provider: Tulio Ramos MD 1950 Date: 04/06/2012 Ej Grant Allergies: Allergies as of 04/06/2012 - reviewed 04/06/2012 Allergen Reaction Noted ? ? Morphine Nausea and/or Vomiting 03/30/2012 ? ? Tramadol Nausea and/or Vomiting 08/02/2009 Procedures: TFE Left L5 & S1 Indication for Procedure: Intractable radicular pain of the lowerextremity. Procedure: Lumbar/Sacral Transforaminal Injection. Informed Consent: After the patient Mateo Caruso was informed of therisks and benefits of the procedure and all questions were answered,consent was signed. Risks benefits, and alternative were discussedincluding risk of infection, bleeding , nerve damage, worsening pain, nopain relief whatsoever, transient increase in blood pressure, blood sugar,fluid retention,possibility of headache, possibility of shingles, or anyother viral outbreak secondary to immunosuppressant effects of steroiduse. Prep: Pt identified, proper procedure identified, site identified, andmarked by Dr. Ramos. Responsible river driver is not needed due to the patientnot having sedation. The patient was placed in a prone position and was prepped withChloraprep. Fluoroscopy: Procedure done under fluoroscopy; verifying needle placementwith fluoroscopy . The transverse process/sacral foramen was identifiedand lidocaine 1% was injected. Local Injection: Lidocaine 1.0% into the skin and subcutaneous tissuesusing a 25 gauge needle. Needle Placement: A 22 gauge 3 1/2 spinal needle was then insertedthrough the anesthetized area until the tip stimulated the nerve root orwas in the six o'clock position to the pedicle in AP and superior foramenin Lat fluoroscopic visualization. Nerve Root injected :Left L5 & S1. Total Lidocaine: !%; 6ml Depo Medrol: 80 mg The patient tolerated the procedure well and there were nocomplications. The patient was taken to the recovery area. The patientremained in stable condition with no apparent complications. Vital signsstable. Injection site clean, dry, and intact. Post procedureinstructions were given to the patient and a follow up appointment wasconfirmed. The patient was discharged with information on how to reachthe clinic at anytime for questions or concerns. Pt ambulatory, deniescomplaints, DC to home. Pt survey given. Procedure codes: Epi Transfor Lumbar/Sac (S), Epi Add Levels Lumb/Sac,Fluoro. Tulio Ramos MD Tulio Ramos MD [facility]NOSTIC IM[facility]ING [facility] Care Teams Carpet Cleaning Technician Relationship Specialty Start Date End Date Ej Grant MD [address] [phone] PCP - General Internal Medicine 07/01/13 Ronaldo David MD Orthopedic Surgery 07/01/13
[2024-04-08 07:44] VITALS: BP 137/82; PULSE 102; RESP 16; TEMP 36; O2SAT 98; BMI 26.8
[2024-04-08] MEDS: LACTATED RINGERS 1,000 ML 150 ML IV CONT (07:53)
--- NOTE | 2024-04-08 07:56 | WPDANESEPPF ---
Anes - Initial Pre Proc Eval Procedure: Operation Date: 04/08/24 08:30 Proposed Procedures p Screening Colonoscopy - Alex Brody MD Date/Time: 04/08/24 07:56 Surgeon: Alex Brody MD Pre Op Diagnosis: screening malignant neoplasm colon Patient Data Age: 73 Gender: M Height: 1.73 m Weight: 80 kg Last Vital Signs Temp 36.0 C L 04/08/24 07:44 Pulse 102 H 04/08/24 07:44 Resp 16 04/08/24 07:44 BP 137/82 04/08/24 07:44 Pulse Ox 98 04/08/24 07:44 O2 Del Method Room Air 04/08/24 07:44 Allergies Allergy/AdvReac Type Severity Reaction Status Date / Time morphine Allergy Unknown Vomiting Verified 04/08/24 07:41 Home Medications ?Medication ?Instructions ?Recorded ?Confirmed ?Type sildenafil (pulm.hypertension) 20 See Rx Instructions PO DAILY PRN 05/20/23 04/08/24 Rx mg tablet sexual activity #90 tabs losartan 50 mg tablet 50 mg PO DAILY #90 tabs 09/09/23 04/08/24 Rx rosuvastatin 10 mg tablet 10 mg PO DAILY #90 tabs 09/09/23 04/08/24 Rx metformin 500 mg tablet,extended 1,000 mg (2 x 500 mg) PO BID #120 12/18/23 04/08/24 Rx release 24 hr tabs gabapentin 300 mg capsule 300 mg PO BID #120 caps 01/22/24 04/08/24 Rx tirzepatide 2.5 mg/0.5 mL 2.5 mg (0.5 mL) subcut WEEKLY #2 mL 01/22/24 04/08/24 Rx subcutaneous pen injector empagliflozin 25 mg tablet 25 mg PO QAM #90 tabs 03/15/24 04/08/24 Rx (Jardiance) Patient hx anesthesia problems: none Family hx anesthesia problems: none Results Review: All pre-operative results and documents have been reviewed as part of the pre-operative evaluation. [facility] Past Medical History Medical History (Updated 04/08/24 @ 08:04 by Tulio Reeves DO) Cirrhosis of liver formal alcohol abuse, quit 3 years ago. LFTs normal, does not see anyone for this Erectile dysfunction Gastritis Skin lesion Decreased cardiac ejection fraction Lung nodule Hypertension Encounter to establish care Hyperlipidemia Diabetes Arthritis Surgical History Surgical History History of back surgery (~1989) History of colon resection (~1999) Family History Family History Father Hypertension Mother Polio Sibling Breast cancer Other Diabetes mellitus Hypertension Social History Social History Smoking status: Never smoker Alcohol intake: never Alcohol use details: wine Substance use: current Substance use type: marijuana Other substance usage details: at bedtime Current Housing: Decline to Answer Concerned About Future Housing: Decline to Answer Difficulty Paying Gas/Electric Bills: Decline to Answer Difficulty Paying for Meds: Decline to Answer Currently Unemployed: Decline to Answer Education: Decline to Answer Difficulty w/ Childcare or Family Care: Decline to Answer Anes - Eval Final PreProcedure Day of Procedure 04/08/24 07:56 Patient weight: overweight Heart: regular rate and rhythm Lungs: clear to auscultation Airway: Mallampati scale class II Neurological: alert and oriented Last oral intake: >/= 8 hours ASA classification: III Emergent: no Anesthetic plan: proceed Anesthesia type and monitoring: general GIVS and standard monitoring Results Review: All pre-operative results and documents have been reviewed as part of the pre-operative evaluation. Informed Consent: The patient's anesthetic plan and its attendant risks and benefits were discussed with the patient/family/POA. Questions were solicited and answers provided to the satisfaction of the patient/family/POA.
[2024-04-08 07:57] LABS: Glucose Point of Care 146 mg/dl (65-105)
--- NOTE | 2024-04-08 08:08 | PM.HPGS ---
History of Present Illness History of Present Illness Consent: Risks, benefits, and alternatives have been discussed and questions answered. Patient agrees to proceed with procedure. Chief complaint: screening malignant neoplasm colon Narrative: Mateo Caruso is a 73 year old male here for screening colonoscopy, last one about 10 years ago, also h/o diverticulitis that required surgery Review of Systems Review of Systems: All systems reviewed & are unremarkable except as noted in HPI and below PMFSH Past Medical History Medical History (Updated 04/08/24 @ 08:09 by Alex Brody MD) Colon cancer screening Cirrhosis of liver formal alcohol abuse, quit 3 years ago. LFTs normal, does not see anyone for this Erectile dysfunction Gastritis Skin lesion Decreased cardiac ejection fraction Lung nodule Hypertension Encounter to establish care Hyperlipidemia Diabetes Arthritis Surgical History Surgical History History of back surgery (~1989) History of colon resection (~1999) Family History Family History Father Hypertension Mother Polio Sibling Breast cancer Other Diabetes mellitus Hypertension Social History Social History Smoking status: Never smoker Alcohol intake: never Alcohol use details: wine Substance use: current Substance use type: marijuana Other substance usage details: at bedtime Current Housing: Decline to Answer Concerned About Future Housing: Decline to Answer Difficulty Paying Gas/Electric Bills: Decline to Answer Difficulty Paying for Meds: Decline to Answer Currently Unemployed: Decline to Answer Education: Decline to Answer Difficulty w/ Childcare or Family Care: Decline to Answer Meds Home Medications and Allergies Home Medications ?Medication ?Instructions ?Recorded ?Confirmed ?Type sildenafil (pulm.hypertension) 20 See Rx Instructions PO DAILY PRN 05/20/23 04/08/24 Rx mg tablet sexual activity #90 tabs losartan 50 mg tablet 50 mg PO DAILY #90 tabs 09/09/23 04/08/24 Rx rosuvastatin 10 mg tablet 10 mg PO DAILY #90 tabs 09/09/23 04/08/24 Rx metformin 500 mg tablet,extended 1,000 mg (2 x 500 mg) PO BID #120 12/18/23 04/08/24 Rx release 24 hr tabs gabapentin 300 mg capsule 300 mg PO BID #120 caps 01/22/24 04/08/24 Rx tirzepatide 2.5 mg/0.5 mL 2.5 mg (0.5 mL) subcut WEEKLY #2 mL 01/22/24 04/08/24 Rx subcutaneous pen injector empagliflozin 25 mg tablet 25 mg PO QAM #90 tabs 03/15/24 04/08/24 Rx (Jardiance) Allergies Allergy/AdvReac Type Severity Reaction Status Date / Time morphine Allergy Unknown Vomiting Verified 04/08/24 07:41 Vital Signs Vital Signs - 24 hr 04/08/24 07:44 Temperature 96.8 F L Pulse Rate 102 H Respiratory Rate 16 Blood Pressure 137/82 Pulse Oximetry 98 Oxygen Delivery Room Air Exam Const: General: comfortable and no acute distress HENMT: Face/Nose/Sinus: Normal nares present Eyes: General: appearance normal, both eyes and all related structures Neck: Neck: no JVD Resp: Auscultation: clear to auscultation bilaterally Cardio: Rate: regular rate Rhythm: regular rhythm GI: Inspection: non-distended GI Palp: Yes Soft to palpation Skin: General skin exam: normal color Neuro: General: gait normal Speech: normal speech Extrem: General: normal to inspection Psych: Mental Status: mental status grossly normal Assessment and Plan Assessment and plan (1) Colon cancer screening: Code(s): Z12.11 - Encounter for screening for malignant neoplasm of colon Status: Acute Assessment and Plan: colonoscopy
[2024-04-08 08:23] VITALS: BP 113/81; PULSE 88; RESP 19; O2SAT 98
[2024-04-08 08:33] VITALS: BP 101/72; PULSE 87; RESP 11; O2SAT 95
[2024-04-08 08:43] VITALS: BP 103/67; PULSE 92; RESP 23; O2SAT 95
== END 2024-04-08 08:45 | disposition home or self-care (01) ==
PROVIDERS: PCP Internal Medicine; Referring Provider Family Medicine; Visit Provider Internal Medicine Gastroenterology
PROC: 0DJD8ZZ Inspection of Lower Intestinal Tract, Via Natural or Artificial Opening Endoscopic (ICD-10-PCS; CPT 45378; principal; 2024-04-08 08:30)
DX: Z12.11 Encounter for screening for malignant neoplasm of colon (principal); D12.2 Benign neoplasm of ascending colon; D12.4 Benign neoplasm of descending colon; K64.8 Other hemorrhoids; Z98.0 Intestinal bypass and anastomosis status; Z90.49 Acquired absence of other specified parts of digestive tract; E11.9 Type 2 diabetes mellitus without complications; F12.90 Cannabis use, unspecified, uncomplicated; Z87.19 Personal history of other diseases of the digestive system
CPT/HCPCS: 45385; 82948; 88305; J2704; J7120

== ENCOUNTER 2024-05-13 14:49 | Outpatient (CLI) | payer OTHER, SELFPAY ==
--- NOTE | ~2024-05-13 | XR_ITS ---
XR hand BI arthritis min 3V Ordering provider: ONEYDA Barnes History: . M25.541 - Pain in joints of right hand . Comparison: None. FINDINGS: RIGHT HAND: --BONES: No acute fracture or dislocation. Mild osteopenia. --JOINT SPACES: Severe narrowing of the joint at the level of the second and third metacarpophalangea l joints. No erosive changes seen at the base of the middle and distal phalanges. Osteophytes are als o noted. --SOFT TISSUES: No soft tissue nodules. Soft tissue swelling seen over the proximal interphalangeal j oints. LEFT HAND: --BONES: No acute fracture or dislocation. --JOINT SPACES: Narrowing of the second and third metacarpophalangeal joints. No sclerosis. Erosions are seen distal interphalangeal joint of multiple joints. Osteophytes are noted --SOFT TISSUES: Soft tissue swelling over the proximal interphalangeal joints. No soft tissue nodules . IMPRESSION: 1. No acute osseous abnormality bilateral hands. 2. Highly suggestive osteoarthritic changes. Rheumatoid arthritis cannot be excluded. Clinical corre lation advised. Reviewed, dictated and finalized at location A. R FIELD INSTALLATION CREW MEMBER IMPRESSION: 1. No acute osseous abnormality bilateral hands. 2. Highly suggestive osteoarthritic changes. Rheumatoid arthritis cannot be ex cluded. Clinical correlation advised.
--- NOTE | ~2024-05-13 | XR_ITS ---
XR hip RT min 2V Ordering provider: ONEYDA Barnes History: . M25.551 - Pain in right hip . Comparison: None. FINDINGS: BONES: No definite acute fracture or dislocation. Lucency is seen in the inferior pubic ramus. Evalua tion for tenderness in the area and if clinically warranted CT is advised. HIP JOINT SPACES: Normal. SACROILIAC JOINT SPACES/LUMBAR SPINE: The sacroiliac joint spaces are normal. Mild degenerative rjoas es of the visualized lower lumbar spine. PUBIC SYMPHYSIS: Normal. SOFT TISSUES: Normal. IMPRESSION: No definite acute osseous abnormality pelvis and right hip. Lucency seen in the inferior pubic ramus. Evaluation for tenderness in the area and if clinically warranted CT is advised. Reviewed, dictated and finalized at location A. AZZO WORKER
== END 2024-05-13 14:50 | disposition home or self-care (01) ==
LOC: GOSHIMG 14:49
PROVIDERS: PCP Clinical Nurse Specialist; Visit Provider Clinical Nurse Specialist
DX: M25.551 Pain in right hip (principal); M25.542 Pain in joints of left hand; M19.041 Primary osteoarthritis, right hand
CPT/HCPCS: 73130; 73502

== ENCOUNTER 2024-05-13 15:20 | Outpatient (CLI) | payer OTHER, SELFPAY ==
--- OUTSIDE RECORDS SUMMARY | 2024-05-13 16:31 | XMS_ITS | Encounter Summary ---
Author Organization [facility] Address [address] [place] [address] Care Team Providers Care Industrial Equipment Wirer Name Role Phone Ronaldo David MD Unavailable [phone] Ej Grant MD Primary Care Provider [phone] Encounter Details Date Type Department Care Team (Late st Contact Info) Description 09/01/2023 Lab Requisition [facility] - DermPath Lab [address] [facility] [place] [address] Mairah Omer MD [address] [facility] [address] [place] [address] Social History Tobacco Use Types Packs/Day Years [...] 10:50 AM CDT) Case Report Dermatopathology Report Case: [id number] Authorizing Provider: Mariah Omer MD Collected: 09/01/2023 10:50 AM Ordering Location: [facility] - Received: 09/01/2023 04:19 PM DermPath Lab Pathologist: Yesica Do MD Specimen: Skin, left back 1:29 PM CDT DERMATOPATHOLOGY LABORATORY Final Diagnosis Specimen A. SKIN, left back: DERMAL SCAR RESIDUAL BASAL CELL CARCINOMA NOT IDENTIFIED (L90.5) 1:29 PM CDT DERMATOPATHOLOGY LABORATORY Clinical History BCC bx proven 1:29 PM CDT DERMATOPATHOLOGY LABORATORY Gross Description Specimen A: Received is one formalin filled container labeled with the patient's name and designated left back. The specimen consists of a non-oriented ellipse of skin measuring [id number] mm. The epidermal surface is unremarkable. The margin is inked green. The 12 o'clock and 6 o'clock tips are submitted in cassette 1. The remainder of the ellipse is serially sectioned and submitted in cassette 2-8. Jar 0. 1:29 PM CDT DERMATOPATHOLOGY LABORATORY Microscopic Description Specimen A. SKIN, left back: There are fibroblasts and collagen bundles oriented parallel to the skin surface. There are elongated blood vessels, some of which are oriented perpendicular to the skin surface. No basal cell carcinoma is identified. 1:29 PM CDT DERMATOPATHOLOGY LABORATORY Disclaimer An external and internal positive and negative controls are appropriate for the histochemical, immunohistochemical and immunofluorescence stain(s) in this case (if any), except where stated explicitly. The performance characteristics of the stain(s) cited in this report were developed and its performance characteristic determined by the Dermatopathology Laboratory at [facility] directed by Dr. Rusty Cornejo. These tests need not be, and therefore are not, approved by the [place] Food and Drug Administration. The tests are used for clinical purposes. Billing Codes Specimen Charges Stain Charges 04532 1 4 1:29 PM CDT DERMATOPATHOLOGY LABORATORY Embedded Images 4 1:29 PM CDT DERMATOPATHOLOGY LABORATORY Pathology/Cytolo gy TISSUE SPECIMEN FROM SKIN / Unknown 09/01/2023 10:50 AM CDT 09/01/2023 4:19 PM CDT Mariah Omer MD LAB - PATHOLOGY/CYTO LOGY ORDERABLES DERMATOPATHOLOGY LABORATORY [facility] - Department of Dermatology [facility] Medicine [address] [place] [address], [address] [phone] documented in this encounter Visit Diagnoses Not on filedocumented in this encounter Care Teams Industrial Equipment Wirer Relationship Specialty Start Date End Date Ej Grant MD [address] [place] [phone] PCP - General Internal Medicine 07/01/13 Ronaldo David MD Orthopedic Surgery 07/01/13 documented as of this encounter
--- OUTSIDE RECORDS SUMMARY | 2024-05-13 16:31 | XMS_ITS | CONTINUITY OF CARE DOCUMENT ---
Author Name carter machado Address Unknown Organization [facility] Address [address] [place] [address] [address] [place] [address] Phone [phone] Care Team Providers Care Visual Communications Instructor Name Role Phone carter machado Unavailable Unavailable INSURANCE PROVIDERS Payer name Policy type / Coverage type Anamika red alliance party ID [email or web address] insurance [id number] [id number]
--- OUTSIDE RECORDS SUMMARY | 2024-05-13 16:31 | XMS_ITS | Clinical Summary ---
Author Organization [facility] Address [address] [place] [address] Care Team Providers Care Cert Occupational Therapy Asst Name Role Phone Ronaldo David MD Unavailable [phone] Ej Grant MD Primary Care Provider [phone] Source Comments [facility] and Associated Physician Practices is amultiple site organization consisting of ambulatory clinics and hospital sitesin [place], [place], [place]. This disclosure is being madepursuant to the Care Everywhere program and may not contain all information available regarding this patient. Last updated 17.[facility] Allergies Active Allergy Reactions Criticality Noted [...] every 6 hours as needed. Called to [facility] [phone] 50 Tab 1 07/30/2013 Active celecoxib (CELEBREX) 200 MG capsule Take 1 Cap by mouth once daily. Sent to [facility] 30 Cap 0 07/30/2013 Active Active [...] 96 07/30/2013 8:54 AM CDT Temperature 36.7 C (98 F) 07/30/2013 6:34 AM CDT Respiratory Rate 14 [...] 2) 10/22/2001 AAA SCREENING 10/22/2016 COVID-19 VACCINE (1 - 2023-2 5 season) 2023 INFLUENZA VACCINE [...] this topic Medical Devices Implanted Type Area Supervisor Hot Dip Tinning Device Identifier Shelf Expiration Date Model / Serial / Lot Tereso Bone [place] Hv Implanted:Qty: 1 on 07/28/2013 by Ronadlo David MD at [facility] [employer] 03/09/2015 [id number] / / [id number] Tereso Bone [place] Hv Implanted:Qty: 1 on 07/28/2013 by Ronaldo David MD at [facility] Left: [employer] 03/09/2015 [id number] / / [id number] Daryln Pat Arcom Wire Polyeth Med 34 X 9mm Implanted:Qty: 1 on 07/28/2013 by Ronaldo David MD at [facility] Left: [employer] 06/06/2018 [id number] / / [id number] Ty Tibial I Beam Fix Bar 75mm Implanted:Qty: 1 on 07/28/2013 by Ronaldo David MD at [facility] Left: [employer] 06/07/2023 [id number] / / [id number] Femur Ps L 70mm Implanted:Qty: 1 on 07/28/2013 by Ronaldo David MD at [facility] Left: [employer] 03/09/2023 [id number] / / [id number] E1 Vanguard Tibial Bearing Implanted:Qty: 1 on 07/28/2013 by Ronaldo David MD at [facility] Left: Knee 05/07/2018 [id number] / / [id number] Advance Directives * Full Code (Latest Code Status on File) Date Activated Date Inactivated Comments 07/28/2013 5:54 PM 07/30/2013 1:05 PM Care Teams Cert Occupational Therapy Asst Relationship Specialty Start Date End Date Ej Grant MD [address] [facility] [address] [place] [phone] PCP - General Internal Medicine 07/01/13 Ronaldo David MD Orthopedic Surgery 07/01/13
--- OUTSIDE RECORDS SUMMARY | 2024-05-13 16:31 | XMS_ITS | Referral Summary ---
Author Organization [facility] Address [address] [place] [address] Care Team Providers Care Gear Machinist Name Role Phone Ronaldo David MD Unavailable [phone] Ej Grant MD Primary Care Provider [phone] Source Comments [facility] and Associated [facility]ician Practices is amultiple site organization consisting of ambulatory clinics and hospital sitesin [place], [place], [place] and [place]. This disclosure is being madepursuant to the Care Everywhere program and may not contain all information available regarding this patient. Last updated 17.[facility] Allergies Active Allergy Reactions Criticality Noted [...] every 6 hours as needed. Called to [facility] [phone] 50 Tab 1 07/30/2013 Active celecoxib (CELEBREX) 200 MG capsule Take 1 Cap by mouth once daily. Sent to [facility] 30 Cap 0 07/30/2013 Active Active Problems [...] on file Medical Devices Implanted Type Area National Insurance Officer Device Identifier Shelf Expiration Date Model / Serial / Lot Tereso Bone Gonzales Hv Implanted:Qty: 1 on 07/28/2013 by Ronaldo David MD at [facility] [employer] 03/09/2015 [id number] / / [id number] Tereso Bone [place] Hv Implanted:Qty: 1 on 07/28/2013 by Ronaldo David MD at [facility] Left: [employer] 03/09/2015 [id number] / / [id number] Gladys Pat Arcom Wire Polyeth Med 34 X 9mm Implanted:Qty: 1 on 07/28/2013 by Ronaldo David MD at [facility] Left: [employer] 06/06/2018 [id number] / / [id number] Ty Tibial I Beam Fix Bar 75mm Implanted:Qty: 1 on 07/28/2013 by Ronaldo David MD at [facility] Left: [employer] 06/07/2023 [id number] / / [id number] Femur Ps L 70mm Implanted:Qty: 1 on 07/28/2013 by Ronaldo David MD at [facility] Left: [employer] 03/09/2023 [id number] / / [id number] E1 Vanguard Tibial Bearing Implanted:Qty: 1 on 07/28/2013 by Ronaldo David MD at [facility] Left: Knee 05/07/2018 -[id number] / / [id number] Advance Directives * Full Code (Latest Code Status on File) Date Activated Date Inactivated Comments 07/28/2013 5:54 PM 07/30/2013 1:05 PM Care Teams Gear Machinist Relationship Specialty Start Date End Date Ej Grant MD [address] [phone] PCP - General Internal Medicine 07/01/13 Ronaldo David MD Orthopedic Surgery 07/01/13
--- OUTSIDE RECORDS SUMMARY | 2024-05-13 16:31 | XMS_ITS | Patient Health Summary ---
Author Organization [facility] Address [address] [place] [address] Care Team Providers Care Quality Technician Name Role Phone Ronaldo David MD Unavailable [phone] Ej Grant MD Primary Care Provider [phone] Note from [facility],non-owned Affiliates and Associated Physician Practices is amultiple site organization consisting of ambulatory clinics and hospital sitesin [place], [place], [place] and [place]. This disclosure is being madepursuant to the Care Everywhere program and may not contain all information available regarding this patient. Last updated 17.[facility] Allergies * Morphine(Nausea and/or Vomiting) * Tramadol(Nausea and/or Vomiting) Medications * Be aware that medications may not be up to date on this document. Alwaysverify current medications with the patient. * lisinopril (PRINIVIL; ZESTRIL) 10 MG tablet Take 10 mg by mouth daily. * hydrocodone-acetaminophen (NORCO) 5-325 MG tablet(Started 07/30/2013) Take 1-2 Tabs by mouth every 6 hours as needed. Called to [facility] [phone] 1 refill left * celecoxib (CELEBREX) 200 MG capsule(Started 07/30/2013) Take 1 Cap by mouth once daily. Sent to [facility] Active Problems Problem Noted Date Diagnosed Date [...] AM CDT Medical Devices Implanted Type Area Azure Principal Solution Specialist Device Identifier Shelf Expiration Date Model / Serial / Lot Tereso Bone Murdock Hv Implanted:Qty: 1 on 07/28/2013 by Ronaldo David MD at [facility] [employer] 03/09/2015 [id number] / / [id number] Tereso Bone Murdock Hv Implanted:Qty: 1 on 07/28/2013 by Ronaldo David MD at [facility] Left: [employer] 03/09/2015 [id number] / / [id number] Gladys Oneill Arcom Wire Polyeth Med 34 X 9mm Implanted:Qty: 1 on 07/28/2013 by Ronaldo David MD at [facility] Left: [employer] 06/06/2018 [id number] / / [id number] Tibial I Beam Fix Bar 75mm Implanted:Qty: 1 on 07/28/2013 by Ronaldo David MD at [facility] Left: [employer] 06/07/2023 [id number] / / [id number] Femur Ps L 70mm Implanted:Qty: 1 on 07/28/2013 by Ronaldo David MD at [facility] Left: [employer] 03/09/2023 [id number] / / [id number] Vanguard Tibial Bearing Implanted:Qty: 1 on 07/28/2013 by Ronaldo David MD at [facility] Left: Knee 05/07/2018 [id number] / / [id number] Procedures * DERMATOPATHOLOGY(Performed 09/01/2023) * DERMATOPATHOLOGY(Performed 06/11/2023) [...] period is included. Case Report Dermatopathology Report Case: [id number] Authorizing Provider: Mariah Omer MD Collected: 09/01/2023 10:50 AM Ordering Location: [facility] - Received: 09/01/2023 04:19 PM DermPath [...] of a non-oriented ellipse of skin measuring [id number] mm. The epidermal surface is unremarkable. The [...] characteristic determined by the Dermatopathology Laboratory at [facility], directed by Dr. Rusty Cornejo. These tests need not be, and therefore are not, approved by the [place] Food and Drug Administration. The tests are used for clinical purposes. Billing Codes Specimen Charges Stain Charges 39564 1 1:29 PM CDT DERMATOPATHOLOGY LABORATORY Embedded Images 1:29 PM CDT DERMATOPATHOLOGY LABORATORY Pathology/Cytolo gy TISSUE SPECIMEN FROM SKIN / Unknown 09/01/2023 10:50 AM CDT 09/01/2023 4:19 PM CDT aMriah Omer MD LAB - PATHOLOGY/CYTO LOGY ORDERABLES DERMATOPATHOLOGY LABORATORY [facility] Department of Dermatology [address], [address] [phone] * XR KNEE 1 OR 2 VW LEFT (08/11/2013 9:39 AM CDT) Anatomical Region Laterality Modality Lower Extremity Radiographic Mariangel ging Narrative 08/11/2013 9:42 AM CDT Radha Sorenson, RT(R) 08/11/2013 9:42 AM See progress notes for results Procedure Note Radha Sorenson, RT(R) - 08/11/2013 9:41 AM CDT See progress notes for results Ronaldo David MD DIAGNOSTIC IMAGING ORDERABLES * HGB HCT PANEL (07/30/2013 3:26 AM CDT) Only the most recent of2 resultswithin the time period is included. Hemoglobin 12.0 12.0 - 17.6 gm/dL 07/30/2013 3:52 AM CDT [facility] Hematocrit 35.6 35.2 - 51.7 % 07/30/2013 3:52 AM CDT [facility] Blood BLOOD SPECIMEN / Unknown 07/30/2013 3:26 AM CDT 07/30/2013 3:48 AM CDT Ronaldo David MD LAB - HEMATOLOGY OR DERABLES [facility] [address] [place] [address] * NEURAXIAL BLOCK (07/28/2013 2:16 PM CDT) Narrative Christine Agrawal, PLANNING MANAGEMENT IT SPECIALIST-CELEBRITY CHEF ENTREPRENEUR MEDIA PERSONALITY - 07/28/2013 2:16 PM CDT SHEEBA [place] 07/28/2013 2:16 PM NEURAXIAL BLOCK Patient Location: OR Pre Procedure Anticoagulation /Antithrombosis Status Confirmed: Yes Preanesthetic Checklist: patient identified, IV checked, site marked, risks and benefits discussed, surgical consent verified, monitors and equipment checked, pre-op evaluation done, timeout performed, informed consent obtained and questions answered / anesthesia plan accepted Monitors: BP and Pulse Ox Patient Condition: sedated, meaningful contact maintained Patient Position: sitting Procedure Block Performed: spinal Prep: Betadine Sterile Field: sterile gloves, sterile field established, cap/hat and mask Approach: midline Skin Numbed with: lidocaine 1% Spinal Needle Gauge: 22 G Placement Site: L3-4 Number of Attempts: 2 CSF: free flow, aspiration before injection, aspiration during injection and aspiration after injection Local Anesthetic: bupivacaine 0.75% in dextrose 2 Spinal Additive: fentanyl 25 mcg Events CSF return injection not painful no paresthesia no other event Position Post Procedure: supine Vital signs monitored and stable throughout. See Anesthesia Intraop record for details. Block Start Time: 07/28/2013 1:22 PM Block End Time: 07/28/2013 1:25 PM Block Performed by: sam jin Procedure Note Christine Agrawal, ELTON-CELEBRITY CHEF ENTREPRENEUR MEDIA PERSONALITY - 07/28/2013 2:14 PM CDT NEURAXIAL BLOCK [...] 07/28/2013 1:25 PM Block Performed by: davin, game engineer Christine Agrawal APRN-CELEBRITY CHEF ENTREPRENEUR MEDIA PERSONALITY GENERAL EMILIA ARELLANO ORDERABLES * (ABNORMAL) CULTURE MSSA/MRSA (07/19/2013 8:42 AM CDT) Culture Negative for MRSA 014 2:53 PM CDT [facility] Culture Staphylococcus aureus (MSSA)(A) 07/20/2013 2:53 PM CDT [facility] MICROBIOLOGY Microbiology SPECIMEN FROM NASAL FOSSAE / Unknown 07/19/2013 8:42 AM CDT 07/19/2013 9:35 AM CDT Miko Linda MD LAB - MICROBIOLOGY O RDERABLES [facility] MICROBIOLOGY [address] [place], [place] [address], [facility] * (ABNORMAL) CBC W AUTO DIFFERENTIAL (07/19/2013 8:42 AM CDT) WBC 7.4 4.4 - 10.7 x10^9/L 07/19/2013 9:42 AM CDT [facility] RBC 4.58 3.80 - 5.40 x10^12/L 07/19/2013 9:42 AM CDT [facility] Hemoglobin 15.1 12.0 - 17.6 gm/dL 07/19/2013 9:42 AM CDT [facility] Hematocrit 43.7 35.2 - 51.7 % 07/19/2013 9:42 AM CDT [facility] MCV 95.4 80.7 - 98.3 fl 07/19/2013 9:42 AM CDT [facility] MCH 33.0 26.7 - 34.0 pg 07/19/2013 9:42 AM CDT [facility] MCHC 34.6 30.8 - 35.9 gm/dL 07/19/2013 9:42 AM CDT [facility] Platelet Count 241 153 - 416 x10^9/L 07/19/2013 9:42 AM CDT [facility] RDW-CV 13.9 12.1 - 14.9 % 07/19/2013 9:42 AM CDT [facility] MPV 9.8 9.4 - 12.9 fl 07/19/2013 9:42 AM CDT [facility] Neutrophils % 75.2(H) 44.0 - 73.0 % 07/19/2013 9:42 AM CDT [facility] Lymphocytes % 16.4(L) 20.0 - 43.0 % 07/19/2013 9:42 AM CDT [facility] Monocytes % 7.7 5.0 - 13.0 % 07/19/2013 9:42 AM CDT [facility] Eosinophils % 0.3 0.0 - 6.0 % 07/19/2013 9:42 AM CDT [facility] Basophils % 0.3 0.0 - 2.0 % 07/19/2013 9:42 AM CDT [facility] Immature Granulocytes 0.1 0 - 1 % 07/19/2013 9:42 AM CDT [facility] Neutrophil Absolute 5.57 2.01 - 7.14 x10^9/L 07/19/2013 9:42 AM CDT [facility] Lymphocytes Absolute 1.21 1.07 - 3.94 x10^9/L 07/19/2013 9:42 AM CDT [facility] Monocytes Absolute 0.57 0.26 - 1.07 x10^9/L 07/19/2013 9:42 AM CDT [facility] Eosinophils Absolute 0.02 0 - 0.47 x10^9/L 07/19/2013 9:42 AM CDT [facility] Basophils Absolute 0.02 0 - 0.08 x10^9/L 07/19/2013 9:42 AM CDT [facility] Immature Granulocytes Absolute 0.01 0.00 - 0.06 x10^9/L 07/19/2013 9:42 AM CDT [facility] Blood BLOOD SPECIMEN / Unknown 07/19/2013 8:42 AM CDT 07/19/2013 9:35 AM CDT Miko Linda MD LAB - HEMATOLOGY ORD ERABLES [facility] [address] [place] [address] * (ABNORMAL) COMPREHENSIVE METABOLIC PANEL (07/19/2013 8:42 AM CDT) [facility] Glucose 142(H) 74 - 106 mg/dL 07/19/2013 9:57 AM CDT [facility] Sodium 135(L) 136 - 145 mmol/L 07/19/2013 9:57 AM CDT [facility] Potassium 4.4 3.5 - 5.1 mmol/L 07/19/2013 9:57 AM CDT [facility] Chloride 102 98 - 107 mmol/L 07/19/2013 9:57 AM CDT [facility] CO2 27 22 - 31 mmol/L 07/19/2013 9:57 AM CDT [facility] Calcium 9.2 8.5 - 10.1 mg/dL 07/19/2013 9:57 AM CDT [facility] Anion Gap 6 5 - 15 mmol/L 07/19/2013 9:57 AM CDT [facility] BUN 20 7 - 21 mg/dL 07/19/2013 9:57 AM CDT [facility] Creatinine 0.83 0.50 - 1.30 mg/dL 07/19/2013 9:57 AM CDT [facility] eGFR by MDRD >60 >60 mL/min/1.7 3m2 07/19/2013 9:57 AM CDT [facility] eGFR by MDRD >60 >60 mL/min/1.7 3m2 07/19/2013 9:57 AM CDT [facility] Alkaline Phosphatase 41 38 - 126 U/L 07/19/2013 9:57 AM CDT [facility] ALT 28 12 - 78 U/L 07/19/2013 9:57 AM CDT [facility] AST 23 5 - 40 U/L 07/19/2013 9:57 AM CDT [facility] Protein Total 7.4 6.4 - 8.2 gm/dL 07/19/2013 9:57 AM CDT [facility] Albumin 4.1 3.4 - 5.0 gm/dL 07/19/2013 9:57 AM CDT [facility] Bilirubin Total 0.4 0.2 - 1.0 mg/dL 07/19/2013 9:57 AM T [facility] Blood BLOOD SPECIMEN / Unknown 07/19/2013 8:42 AM CDT 07/19/2013 9:35 AM CDT Miko Linda MD LAB - CHEMISTRY MANSOOR PAVON Performing Organization Address [facility] de Phone Number [facility] [address] [place] [address] * EKG 12-LEAD (07/19/2013 7:29 AM CDT) Ventricular Rate 80 BPM [facility] Atrial Rate 80 BPM [facility] P-R Interval 178 ms [facility] QRS Duration ms 90 ms [facility] Q-T Interval ms 382 ms [facility] QTC Calculation (Bezet) 440 ms [facility] Calculated P [place] 56 degrees [facility] Calculated R [place] -10 degrees [facility] Calculated T [place] 35 degrees [facility] Interpretation EKG Normal sinus rhythm Normal ECG No previous ECGs available Confirmed by MYNOR FONSECA MD ([id number]) on 07/20/2013 9:17:12 AM [facility] 07/19/2013 7:29 AM CDT 07/20/2013 9:17 AM CDT Narrative [facility] - 07/20/2013 8:17 AM CDT Procedure Note Document, Scanned - 07/19/2013 12:31 PM CDT Transcriptions Document, Scanned - 07/19/2013 12:31 PM CDT Document, Scanned - 07/20/2013 9:18 AM CDT Miko Linda MD ECG ORDERABLES Performing Organization Address [facility] de Phone Number [facility] * XR KNEE BILAT ONE OR TWO VIEWS (07/01/2013 1:40 PM CDT) Anatomical Region Laterality Modality Lower Extremity Radiographic Mariangel ging Narrative 07/01/2013 4:00 PM CDT Leona Zuniga 07/01/2013 4:00 PM Please see progress notes for result. Procedure Note Leona Zuniga - 07/01/2013 4:00 PM CDT Please see progress notes for result. Ronaldo David MD DIAGNOSTIC IMAGING ORDERABLES * IMAGING/RADIOLOGY/XRAY RESULTS ORDER (08/28/2012) Only the most recent of2 resultswithin the time period is included. Anatomical Region Laterality Modality Other Morris Ferreira DC IMAGING * PAIN MANAGEMENT PROCEDURE TIME (04/06/2012 10:58 AM INSURANCE CLAIMS EXAMINER) Only the most recent of2 resultswithin the time period is included. Anatomical Region Laterality Modality X-Ray Angiograph y Narrative 04/06/2012 11:08 AM INSURANCE CLAIMS EXAMINER Tulio Ramos MD 04/06/2012 11:08 AM Left L 5 & S1 Transforaminal Epidural Injection Mateo Caruso Provider: Tulio Ramos MD 1950 Date: 04/06/2012 Ej Grant Allergies: Allergies as of 04/06/2012 - reviewed 04/06/2012 Allergen Reaction Noted Morphine Nausea and/or Vomiting 03/30/2012 Tramadol Nausea and/or Vomiting 08/02/2009 Procedures: TFE Left L5 & S1 Indication for Procedure: Intractable radicular pain of the lower extremity. Procedure: Lumbar/Sacral Transforaminal Injection. Informed Consent: After the patient Mateoberto PollackCaruso was informed of the risks and benefits of [...] to immunosuppressant effects of steroid use. Prep: Pt identified, proper procedure identified, site identified, and marked by Dr. Ramos. Responsible sales route driver helper is not needed due to the patient not having sedation. The patient was placed in a prone position and was prepped with Chloraprep. Fluoroscopy: Procedure done under fluoroscopy; verifying needle placement with fluoroscopy . The transverse process/sacral foramen was identified and lidocaine 1% was injected. Local Injection: Lidocaine 1.0% into the skin and subcutaneous tissues [...] procedure well and there were no complications. The patient was taken to the recovery area. The patient remained in stable condition with no apparent complications. Vital signs stable. Injection site clean, dry, and intact. Post procedure instructions were given to the patient and a follow up appointment was confirmed. The patient was discharged with information on how to reach the clinic at anytime for questions or concerns. Pt ambulatory, denies complaints, DC to home. Pt survey given. Procedure codes: Epi Transfor Lumbar/Sac (S), Epi Add Levels Lumb/Sac, Fluoro. Tulio Ramos MD Procedure Note Tulio Ramos MD - 04/06/2012 11:07 AM CST Left L 5 & S1 Transforaminal EpiduralInjection Mateo Caruso Provider: Tulio Ramos MD 1950 Date: 04/06/2012 Ej Grant Allergies: Allergies as of 04/06/2012 - reviewed 04/06/2012 Allergen Reaction Noted Morphine Nausea and/or Vomiting 03/30/2012 Tramadol Nausea and/or Vomiting 08/02/2009 Procedures: TFE Left L5 & S1 Indication for Procedure: Intractable radicular pain of the lowerextremity. Procedure: Lumbar/Sacral Transforaminal Injection. Informed Consent: After the patient Mateoberto Caruso was informed of therisks and benefits [...] site identified, andmarked by Dr. Ramos. Responsible sales route driver helper is not needed due to the patientnot [...] MD Tulio Ramos MD DIAGNOSTIC IMAGING [facility] Care Teams Quality Technician Relationship Specialty Start Date End Date Ej Grant MD [address] [phone] PCP - General Internal Medicine 07/01/13 Ronaldo David MD Orthopedic Surgery 07/01/13
--- OUTSIDE RECORDS SUMMARY | 2024-05-13 16:31 | XMS_ITS | Encounter Summary ---
Author Organization [facility] Address [address] [place] [address] Care Team Providers Care Regional Transportation Manager Name Role Phone Ronaldo David MD Unavailable [phone] Ej Grant MD Primary Care Provider [phone] Encounter Details Date Type Department Care Team (Late st Contact Info) Description 06/11/2023 Lab Requisition [facility] - DermPath Lab [address] [place] [address] Mariah Omer MD [address] [place] [address] Social History Tobacco Use Types Packs/Day Years [...] 9:36 AM CDT) Case Report Dermatopathology Report Case: [id number] Authorizing Provider: Mariah Omer MD Collected: 06/11/2023 09:36 AM Ordering Location: [facility] - Received: 06/12/2023 06:46 AM DermPath Lab Pathologist: Shruthi Ramos MD Specimens: A) - Skin, forehead B) - Skin, left back 3:31 PM CDT DERMATOPATHOLOGY LABORATORY Final Diagnosis Specimen A. 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 SKIN, left back: BASAL CELL CARCINOMA, NODULAR TYPE (C44.519) 3:31 PM CDT DERMATOPATHOLOGY LABORATORY Clinical History A: SCC vs. ISK B: Pigmented BCC vs. MM 3:31 PM CDT DERMATOPATHOLOGY LABORATORY Gross Description Specimen A: Received is one formalin filled container labeled with the patient's name and designated forehead. The specimen consists of a shave biopsy measuring 5x5x2 mm. Jar 0. Specimen B: Received is one formalin filled container labeled with the patient's name and designated left back. The specimen consists of a shave biopsy measuring 50t46n3 mm. Jar 0. 3:31 PM CDT DERMATOPATHOLOGY LABORATORY Microscopic Description Specimen [...] in macrophages in the adjacent fibromyxoid stroma. 4 3:31 PM CDT DERMATOPATHOLOGY LABORATORY Disclaimer An external and internal positive and negative controls are appropriate for the histochemical, immunohistochemical and immunofluorescence stain(s) in this case (if any), except where stated explicitly. The performance characteristics of the stain(s) cited in this report were developed and its performance characteristic determined by the Dermatopathology Laboratory at [facility], directed by Dr. Rusty Cornejo. These tests need not be, and therefore are not, approved by the [place] Food and Drug Administration. The tests are used for clinical purposes. Billing Codes Specimen Charges Stain Charges 82810 00474 1 1 4 3:31 PM CDT DERMATOPATHOLOGY LABORATORY Embedded Images 3:31 PM CDT DERMATOPATHOLOGY LABORATORY Pathology/Cytology TISSUE SPECIMEN FROM SKIN / Unknown 06/11/2023 9:36 AM CDT 06/12/2023 6:46 AM CDT Miscellaneous samples (specimen) TISSUE SPECIMEN FROM SKIN / Unknown 06/11/2023 9:36 AM CDT 06/12/2023 6:46 AM CDT Mariah Omer MD LAB - PATHOLOGY/CYTO LOGY ORDERABLES DERMATOPATHOLOGY LABORATORY [facility] - Department of Dermatology [address] [phone] documented in this encounter Visit Diagnoses Not on filedocumented in this encounter Care Teams Regional Transportation Manager Relationship Specialty Start Date End Date Ej Grant MD [address] [place], [place] [phone] PCP - General Internal Medicine 07/01/13 Ronaldo David MD Orthopedic Surgery 07/01/13 documented as of this encounter
[2024-05-13 19:25] LABS: Erythrocyte Sedimentation Rate 5 mm/hr (0-20)
[2024-05-13 19:28] LABS: Rheumatoid Factor < 12.0 IU/ML (<12)
[2024-05-13 19:33] LABS: CRP < 0.5 mg/dL (<1.0)
[2024-05-14 16:08] LABS: ANA Cascade Screen NEGATIVE (NEGATIVE)
== END 2024-05-13 15:21 | disposition home or self-care (01) ==
LOC: ANHGOSHLAB 15:21
PROVIDERS: PCP Clinical Nurse Specialist; Visit Provider Clinical Nurse Specialist
DX: M79.10 Myalgia, unspecified site (principal); M19.90 Unspecified osteoarthritis, unspecified site; G62.9 Polyneuropathy, unspecified
CPT/HCPCS: 36415; 85652; 86038; 86140; 86225; 86235; 86364; 86430

== ENCOUNTER 2024-12-27 09:47 | Outpatient (CLI) | payer OTHER, SELFPAY ==
--- NOTE | ~2024-12-27 | CT_ITS ---
CT diagnostic chest w con HISTORY:R91.1 - Solitary pulmonary nodule COMPARISON: None. TECHNIQUE: Axial images of the chest were obtained following administration of 100 mL of Isovue intravenous contrast . Dose optimization technique was utilized. FINDINGS: There is atherosclerotic plaque within the aortic arch. There is a adjacent linear lucency within the isthmus of the aorta may represent a dissection flap. This best seen on the axial image 42, coronal image 70 TO 71. Alternatively this may be artifact The examination demonstrates no pulmonary nodules, infiltrates and/or effusions. Cardiac size and mediastinal configuration are normal in appearance. No hilar or mediastinal lymphadenopathy is seen. The thoracic aorta is normal in caliber. Osseous structures are intact. 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 Lungs are clear. All CT scans at this facility are performed using low dose modulation techniques as appropriate to perform exam including the following: automated exposure control; use of iterative reconstruction technique; adjustment of the mA and/or kV according to patient size (this includes techniques or standardized protocols for targeted exams where dose is matched to indication/reason for exam). Reviewed, dictated and finalized at location S. 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 Lungs are clear. All CT scans at this facility are performed using low dose modulation techniqu es as appropriate to perform exam including the following: automated exposure c ontrol; use of iterative reconstruction technique; adjustment of the mA and/or kV according to patient size (this includes techniques or standardized protocol s for targeted exams where dose is matched to indication/reason for exam).
--- NOTE | ~2024-12-27 | CT_ITS ---
CT abdomen pelvis wo/w con INDICATION: K74.60 - Unspecified cirrhosis of liver COMPARISON: None. TECHNIQUE: Axial 2.5 mm images of the abdomen and pelvis were obtained following without and with infusion of 100 mL Isovue 300. Dose optimization technique was utilized. FINDINGS: The lung bases are clear. The liver parenchyma is unremarkable. No intrahepatic mass or ductal dilatation is evident. The gallbladder is unremarkable. The pancreas and spleen are normal in appearance. The adrenal glands are symmetric in size. The kidneys demonstrate symmetric uptake and excretion of contrast. No cystic mass is evident. There is no solid mass. There is no hydronephrosis. Evaluation of the stomach and bowel loops are limited due to lack of oral contrast. Moderate stool retention suggestive of constipation. There are anastomotic suture within the rectum. The bladder and rectum are normal. No free intraperitoneal fluid or air is evident. There is no significant retroperitoneal lymphadenopathy. The aorta, visceral vessels and renal arteries demonstrate normal caliber and patency. Degenerative changes throughout the lumbar spine with disc space narrowing and endplate sclerosis with uncovertebral hypertrophy. IMPRESSION: No acute abnormality is noted in the abdomen and pelvis. All CT scans at this facility are performed using low dose modulation techniques as appropriate to perform exam including the following: automated exposure control; adjustment of the mA and/or kV according to patient size (this includes techniques or standardized protocols for targeted exams where does is matched to indication/reason for exam; i.e. extremities or head); use of iterative reconstruction technique). Reviewed, dictated and finalized at location S. IMPRESSION: No acute abnormality is noted in the abdomen and pelvis. All CT scans at this facility are performed using low dose modulation techniqu es as appropriate to perform exam including the following: automated exposure c ontrol; adjustment of the mA and/or kV according to patient size (this includes techniques or standardized protocols for targeted exams where does is matched to indication/reason for exam; i.e. extremities or head); use of iterative yifan nstruction technique).
== END 2024-12-27 09:48 | disposition home or self-care (01) ==
LOC: MICIMG 09:48
PROVIDERS: PCP Clinical Nurse Specialist; Visit Provider Clinical Nurse Specialist
DX: R91.1 Solitary pulmonary nodule (principal); K74.60 Unspecified cirrhosis of liver; M25.551 Pain in right hip; R93.89 Abnormal findings on diagnostic imaging of other specified body structures
CPT/HCPCS: 71260; 74178; Q9967

== ENCOUNTER 2025-01-13 12:41 | Outpatient (CLI) | payer OTHER, SELFPAY ==
--- NOTE | ~2025-01-13 | CT_ITS ---
EXAM/PROCEDURE: CTA chest HISTORY: abnormal ct of the chest, suspected aneurysm COMPARISON: December 27 0.25 TECHNIQUE: CT chest aortography performed. FINDINGS: No evidence of dissection seen on today's exam. The remainder exam is unchanged with no consolidation or effusion or pneumothorax. Heart and great vessels normal size. No bulky lymphadenopathy or masses seen. The bones appear intact. IMPRESSION: No acute findings. No evidence of thoracic aortic dissection. Reviewed, dictated and finalized at location A. [employer] IN [employer]GE
[2025-01-13 13:10] LABS: Estimated Glomerular Filt Rate 46
== END 2025-01-13 12:42 | disposition home or self-care (01) ==
LOC: MICIMG 12:42
PROVIDERS: PCP Clinical Nurse Specialist; Visit Provider Nurse Practitioner Adult Health
DX: R93.89 Abnormal findings on diagnostic imaging of other specified body structures (principal)
CPT/HCPCS: 71275; Q9967